=== PATIENT | male | born 1995 | race Caucasian/White ===

== ENCOUNTER 2024-10-10 23:23 | Emergency (ER) | payer OTHER, SELFPAY ==
[2024-10-10 23:25] VITALS: BP 123/78; PULSE 115; O2SAT 96
[2024-10-10 23:38] VITALS: BP 119/66; PULSE 113; RESP 18; TEMP 36.7; O2SAT 96; BMI 24.4
--- NOTE | 2024-10-10 23:41 | ECG_ITS ---
Test Reason : cocaine use Blood Pressure : */* mmHG Vent. Rate : 86 BPM Atrial Rate : 86 BPM P-R Int : 140 ms QRS Dur : 94 ms QT Int : 374 ms P-R-T Axes : 67 48 41 degrees QTcB Int : 447 ms Normal sinus rhythm Normal ECG No previous ECGs available Referred By: Generic ED Physician Electronically Signed By: NINA CROWLEY MD
[2024-10-11 00:38] LABS: MANUAL DIFF FLAG NO
[2024-10-11 00:44] LABS: Hematocrit 40.2 % (42.0-52.0); Hemoglobin 14.0 g/dl (14.0-18.0); Imm Gran Abs Auto 0.03 X10*3/uL (0.00-0.03); Imm Gran Pct Auto 0.4 % (0.0-0.4); Lymphocytes Absolute Auto 1.9 X10*3/uL (1.2-4.9); Mean Corpuscular HGB Conc 34.8 g/dl (31.0-36.0); Mean Corpuscular Hemoglobin 29.2 pg (27.0-33.0); Mean Corpuscular Volume 83.9 fL (80.0-98.0); NRBC Abs Auto 0.000 X10*3/uL (0.0-0.012); NRBC Pct Auto 0.0 /100WBC (0.0-0.2); Platelet Count 208 X10*3/uL (160-400); Red Blood Count 4.79 X10*6/uL (4.60-5.80); White Blood Count 6.8 X10*3/uL (4.8-10.8)
[2024-10-11 00:53] LABS: Alanine Aminotransferase 31 U/L (0-40); Albumin Level 4.7 g/dL (3.5-5.0); Alkaline Phosphatase 68 U/L (39-117); Anion Gap 15 (12-20); Aspartate Amino Transferase 22 U/L (5-37); Blood Urea Nitrogen 13 mg/dL (9-16); Calcium 9.2 mg/dL (8.4-10.2); Carbon Dioxide 25 mmol/L (22-29); Chloride 104 mmol/L (96-108); Creatinine Clr Calc Pharmacy 127.8; Estimated Glomerular Filt Rate > 60; Potassium 3.4 mmol/L (3.3-5.1); Sodium 141 mmol/L (135-145); Total Protein 7.4 g/dL (6.5-8.0)
--- NOTE | 2024-10-11 01:42 | ED_ITS ---
HPI - Medical Clearance General Chief complaint: Medical Clearance Stated complaint: Medical Clearance Time Seen by Provider: 10/11/24 01:42 Source: patient and EMS Mode of arrival: EMS Limitations: no limitations History of Present Illness ED Provider: Dr. Kenya De La Cruz HPI Narrative: Patient presents for medical clearance from the rehab facility where he is currently living. He is in a sober program there. Got depressed on his birthday that he couldn't see his son and decided to go out and used cocaine. Had been sober prior to this for months. Also drank some alcohol. Denies any symptoms. Had been feeling physically well prior to this. Denies SI/I. No reported history of alcohol withdrawal seizure. Related Information Allergies Allergy/AdvReac Type Severity Reaction Status Date / Time No Known Allergies Allergy Verified 10/11/24 13:58 Review of Systems 2 Review of Systems: as per HPI, full review of systems performed and negative but for the above mentioned pertinent positives and negatives. [facility] Social History Social History Alcohol intake: former Smoked in Last 30 Days: Yes Use of substances other than those prescribed or required for medical reasons: Yes Substance Use Type: Crack/Cocaine Substance Use Frequency: Occasionally Substance Use Frequency Other:: 3 Last Used Substance: Weeks (ago) Advance Directives: No Advance Directives Information Provided: No Physical Exam 2 Exam: Exam: GENERAL: Unkempt, no acute distress. SKIN: Normal skin color for ethnicity, warm, dry, no rashes noted. HEENT:? Normocephalic, atraumatic, no stridor, posterior oropharynx nonerythematous, dentition intact, EOMI. NECK: Soft, supple, full ROM, midline structures nontender, no step-offs, no deformities, no lymphadenopathy. CHEST: Heart regular rate and rhythm, no murmurs, symmetric chest rise and fall. PULMONARY: Clear to auscultation bilaterally, no labored breathing, no wheezes/rhales/rhonchi. ABDOMINAL: Soft, nondistended, nontender, positive bowel sounds in all quadrants. : Deferred. MUSCULOSKELETAL: Normal tone, full range of motion, no deformities, no peripheral edema. NEURO: Alert and oriented x3, CN II through XII intact, equal strength and sensation bilateral upper and lower extremities, no focal neurologic deficits.? PSYCHIATRIC: Flat affect, poor eye contact, withdrawn Vital Signs: Vital Signs: Last Vital Signs Temp 98.1 F 10/11/24 04:40 Pulse 88 10/11/24 04:40 Resp 16 10/11/24 04:40 BP 125/57 L 10/11/24 04:40 Pulse Ox 98 10/11/24 04:40 O2 Del Method Room Air 10/11/24 04:40 BMI result Body Mass Index 24.4 Medical Decision Making Medical Decision Making MDM Narrative: Patient presents with request for medical clearance to return to the rehab where he is enrolled in a program after using cocaine and alcohol today. Differential diagnosis includes suicidal ideations, depression, anxiety, mood disorder, decompensated mental illnesses such as schizophrenia or bipolar disorder, medication noncompliance, among many others. Medical clearance protocol was initiated. Differential Diagnosis Differential Diagnoses: The differential diagnosis associated with the presentation includes (as above) Admission/Observation Consideration of admission/observation: Escalation of care including admission/observation considered Lab Data 10/11/24 00:33 10/11/24 00:33 Labs: Lab Results 10/11/24 10/11/24 Range/Units 00:33 02:55 WBC 6.8 (4.8-10.8) X10*3/uL RBC 4.79 (4.60-5.80) X10*6/uL Hgb 14.0 (14.0-18.0) g/dl Hct 40.2 L (42.0-52.0) % MCV 83.9 (80.0-98.0) fL MCH 29.2 (27.0-33.0) pg MCHC 34.8 (31.0-36.0) g/dl RDW 13.6 (11.0-16.0) % Plt Count 208 (160-400) X10*3/uL MPV 10.9 (9.4-12.4) fL Immature Gran % (Auto) 0.4 (0.0-0.4) % Neut % (Auto) 58.9 (45-73) % Lymph % (Auto) 28.2 (20-40) % [place] % (Auto) 10.4 (2-11) % Eos % (Auto) 1.2 (0-4) % Baso % (Auto) 0.9 (0-2) % Lymph # (Auto) 1.9 (1.2-4.9) X10*3/uL [place] # (Auto) 0.7 (0.1-1.2) X10*3/uL Eos # (Auto) 0.1 (0.0-0.4) X10*3/uL Baso # (Auto) 0.1 (0.0-0.2) X10*3/uL Abs Immat Gran (auto) 0.03 (0.00-0.03) X10*3/uL Absolute Neuts (auto) 4.0 (2.0-8.3) x10*3/uL Absolute Nucleated RBC 0.000 (0.0-0.012) X10*3/uL Nucleated RBC % (auto) 0.0 (0.0-0.2) /100WBC Sodium 141 (135-145) mmol/L Potassium 3.4 (3.3-5.1) mmol/L Chloride 104 (96-108) mmol/L Carbon Dioxide 25 (22-29) mmol/L Anion Gap 15 (12-20) BUN 13 (9-16) mg/dL Creatinine 0.88 (0.5-1.4) mg/dL Estim Creat Clear Calc 127.8 Estimated GFR > 60 Random Glucose 96 (60-115) mg/dL Calcium 9.2 (8.4-10.2) mg/dL Total Bilirubin 0.5 (0.0-1.0) mg/dL AST 22 (5-37) U/L ALT 31 (0-40) U/L Alkaline Phosphatase 68 (39-117) U/L Total Protein 7.4 (6.5-8.0) g/dL Albumin 4.7 (3.5-5.0) g/dL Urine Opiates Screen Not Detected (Not Detect) Ur Buprenorphine Scrn Not Detected (Not Detect) ng/mL Ur Oxycodone Screen Not Detected (Not Detect) ng/mL Urine Methadone Screen Not Detected (Not Detect) ng/mL Urine Fentanyl Screen Not Detected (Not Detect) Ur Barbiturates Screen Not Detected (Not Detect) Ur Phencyclidine Scrn Not Detected (Not Detect) Ur Amphetamines Screen POSITIVE H (Not Detect) U Benzodiazepines Scrn Not Detected (Not Detect) Urine Cocaine Screen POSITIVE H (Not Detect) U Marijuana (THC) Screen Not Detected (Not Detect) Ethyl Alcohol < 10 mg/dL Independent Historian Clinical information obtained from an independent historian. History obtained from or confirmed by: EMS Chronic Conditions Patient?s care impacted by: Other (substance use disorder, ADHD) Social Determinants Patient?s care significantly limited by Social Determinants of Health including: Alcoholism and drug addiction in family, Problems related to primary support group and Other Social Determinant of Health Discharge Plan Discharge Clinical Impression: Encounter for medical screening examination, Cocaine use, Alcohol use Patient Disposition: Home, Self-Care Instructions: Cocaine Use Disorder (ED) Additional Instructions: Concomitant use of cocaine and other stimulants such as Adderall can be dangerous. Use extreme caution when mixing stimulants. Return to the emergency room with any new or worsening symptoms including: Chest pain, difficulty breathing, abdominal pain, inability to tolerate food or drink, fevers greater than 100?, any new symptom that concerns you. Call 911 with any medical emergency. Interventions: ED Discharge Assessment Last Done: 10/11/24 04:40 Discharge Date/Time: 10/11/24 04:46 Print Language: Romanian
[2024-10-11 03:10] LABS: Cannabinoid Screen Urine Not Detected (Not Detect)
[2024-10-11 04:40] VITALS: BP 125/57; PULSE 88; RESP 16; TEMP 36.7; O2SAT 98
== END 2024-10-11 04:46 | disposition home or self-care (01) ==
PROVIDERS: Emergency Provider Emergency Medicine; PCP Internal Medicine
DX: F14.10 Cocaine abuse, uncomplicated (principal); F10.10 Alcohol abuse, uncomplicated; Z02.0 Encounter for examination for admission to educational institution; Z51.81 Encounter for therapeutic drug level monitoring; Z79.899 Other long term (current) drug therapy; Y90.0 Blood alcohol level of less than 20 mg/100 ml
CPT/HCPCS: 36415; 80053; 80307; 85025; 93005; 99284

== ENCOUNTER → 2024-10-10 23:41 | Outpatient (BNV) | payer OTHER, SELFPAY | PROVIDERS: Emergency Provider Emergency Medicine; PCP Internal Medicine; Visit Provider Internal Medicine Cardiovascular Disease | DX: F14.90 Cocaine use, unspecified, uncomplicated (principal) | CPT/HCPCS: 93010 ==

== ENCOUNTER 2024-10-11 13:44 | Emergency (ER) | payer OTHER, SELFPAY ==
--- NOTE | ~2024-10-11 | XR_ITS ---
EXAMINATION: XR CHEST CLINICAL INFORMATION: left sided chest pain COMPARISON: None available. TECHNIQUE: 2 views of the chest were obtained. FINDINGS: No consolidation, pleural effusion or pneumothorax. No gross hyperinflation. Cardiomediastinal silhouette size is normal. Old traumatic deformity mid diaphysis of the right clavicle. Metallic hardware throughout the diaphysis of the right clavicle. XR/XR chest 2V IMPRESSION: No acute airspace disease. Status post open reduction internal fixation, right clavicle fracture. Electronically signed by: Kwaku Raya MD 10/11/2024 02:09 PM EDT
--- NOTE | 2024-10-11 13:45 | ECG_ITS ---
Test Reason : CHESST PAIN Blood Pressure : */* mmHG Vent. Rate : 89 BPM Atrial Rate : 89 BPM P-R Int : 134 ms QRS Dur : 92 ms QT Int : 350 ms P-R-T Axes : 66 58 44 degrees QTcB Int : 425 ms Normal sinus rhythm Normal ECG When compared with ECG of 11-Oct-2024 00:27, No significant change was found Referred By: Generic ED Physician Electronically Signed By: NINA CROWLEY MD
[2024-10-11 13:54] VITALS: BP 113/54; PULSE 94; RESP 18; TEMP 36.3; O2SAT 98; BMI 24.6
--- NOTE | 2024-10-11 13:56 | ED.CHESTPAIN ---
HPI - Chest Pain General Chief Complaint: Chest Pain Stated Complaint: CP Time Seen by Provider: 10/11/24 15:48 History of Present Illness ED Provider: Carmencita MAGAÑA narrative: The patient is a 29-year-old male who reports a history of alcohol and cocaine use problems. He apparently has been in a drug treatment center for the last several weeks. The patient was sent from the drug treatment Center today for medical evaluation because of a complaint of left-sided chest pain and left arm pain. He says this pain started last night at around 23:30. He says that he was feeling bad yesterday because it was his birthday and he was not able to see his son. He is from his son's mother. He also reports that another son of his recently. The patient says that he feels sad about his situation but is not suicidal and he has not done anything to harm himself although he was sent to the emergency room late yesterday evening and was evaluated here late yesterday evening and early this morning. He had presented here at 23:30 last night for medical clearance. Apparently he had told staff at his drug treatment facility that he had admitted to doing a shot of alcohol and a line of cocaine 3 hours prior to arrival. Because he had used these medications Related Data Allergies Allergy/AdvReac Type Severity Reaction Status Date / Time No Known Allergies Allergy Verified 10/11/24 13:58 [facility] Social History Social History Alcohol intake: former Smoked in Last 30 Days: Yes Use of substances other than those prescribed or required for medical reasons: Yes Substance Use Type: Crack/Cocaine Substance Use Frequency: Occasionally Substance Use Frequency Other:: 3 Last Used Substance: Weeks (ago) Advance Directives: No Advance Directives Information Provided: No Physical Exam Vital Signs: Vital Signs: Last Vital Signs Temp 98.2 F 10/11/24 17:46 Pulse 91 10/11/24 17:46 Resp 13 10/11/24 17:46 BP 123/72 10/11/24 17:46 Pulse Ox 98 10/11/24 17:46 O2 Del Method Room Air 10/11/24 17:46 BMI result Body Mass Index 24.6 Const: Other: the patient is a 29-year-old male who was awake and alert. He has a somewhat anxious affect but does not seem in acute distress. Orientation/consciousness: patient oriented x3 HEENT: Other: The face is symmetrical. Mucous membranes moist. Eyes: Other: Pupils are round equal, conjunctivae are clear, extraocular movements intact Neck: Neck: Yes normal visual inspection and Yes full ROM Chest: Other: There is left-sided chest wall tenderness that seems to reproduce the patient's pain. Resp: Effort & Inspection: normal respiratory effort Auscultation: clear to auscultation bilaterally Cardio: Rate: regular rate Rhythm: regular rhythm Heart sounds: S1 normal heart sound present and S2 normal heart sound present GI: Other: Abdomen is soft and nontender Skin: Other: The skin is dry and unremarkable General skin exam: no rashes or lesions noted Neuro: General: patient oriented x3, gait normal, tone normal, moves all extremities, no focal motor deficits and CN's II-XI intact bilaterally Extrem: Other: There is no calf swelling or tenderness. No asymmetry. No peripheral edema. Course Course Course Narrative: This is a Rapid Medical Examination (RME) performed by Parveen Hinds PA-C in triage. Full HPI, ROS, assessment and treatment plan per primary provider in the Main ED. Hx: 29 yo M hx of cocaine use disorder and etoh use disorder, currently in treatment, here for eval of severe 9/10 left sided chest pain since yesterday. pain worse with breathing. reports father and grand father hx of MIs. has not used drugs in 2-3 months. denies IVDU. PE/vitals: uncomfortable appearing, holding chest Plan: labs, ekg, cxr Medications Administered Discontinued Medications Generic Name Dose Route Start Last Admin Trade Name Freq PRN Reason Stop Dose Admin Ketorolac Tromethamine 30 mg 10/11/24 17:00 10/11/24 17:10 Ketorolac Tromethamine 30 Mg/Ml Vial IM 10/11/24 17:01 30 mg ONCE ONE Administration Medical Decision Making Medical Decision Making MDM Narrative: The patient is a 29-year-old male who was currently in a drug rehab facility. Apparently last night he used cocaine and had a shot of alcohol. He was sent to the ER last night because of this. He was evaluated and discharged from the emergency room. He returns saying that he has had left-sided chest pain since last night after using the cocaine and alcohol. He described left-sided pleuritic chest pain. He has a nonischemic EKG. His EKG is similar to his EKG from yesterday evening. He had an initial troponin of 44.5. He had a 2nd troponin of 46.4. I do not consider this is significant change. Given that his pain seems primarily pleuritic and given that his EKGs unremarkable and given that he used cocaine last night I think it is unlikely that this elevated but non rising troponin represents an acute coronary syndrome. Since his pain was pleuritic we also ran a D-dimer that was undetectable. Given this combination of normal EKG, flat troponins, and a normal D-dimer and a normal chest x-ray my suspicion for a dangerous process is low. His chest pain seems reproducible with the palpation of his chest wall. I suspect this is more likely chest wall pain, possibly in the setting of some emotional distress related to his separation from his child and also the recent of another child. However the patient maintains he is absolutely not suicidal. He was asked this several times and in different ways and denied any suicidality on each occasion. Ultimately I felt that this was chest wall pain in the he was medically clear and could returned to his drug rehab program. He should return to the emergency room for another evaluation if significantly worse at any time. Lab Data 10/11/24 14:03 10/11/24 14:03 Labs: Lab Results 10/11/24 10/11/24 Range/Units 14:03 16:07 WBC 6.6 (4.8-10.8) X10*3/uL RBC 5.01 (4.60-5.80) X10*6/uL Hgb 14.6 (14.0-18.0) g/dl Hct 42.5 (42.0-52.0) % MCV 84.8 (80.0-98.0) fL MCH 29.1 (27.0-33.0) pg MCHC 34.4 (31.0-36.0) g/dl RDW 13.9 (11.0-16.0) % Plt Count 205 (160-400) X10*3/uL MPV 10.8 (9.4-12.4) fL Immature Gran % (Auto) 0.2 (0.0-0.4) % Neut % (Auto) 59.6 (45-73) % Lymph % (Auto) 22.6 (20-40) % [place] % (Auto) 14.0 H (2-11) % Eos % (Auto) 2.7 (0-4) % Baso % (Auto) 0.9 (0-2) % Lymph # (Auto) 1.5 (1.2-4.9) X10*3/uL [place] # (Auto) 0.9 (0.1-1.2) X10*3/uL Eos # (Auto) 0.2 (0.0-0.4) X10*3/uL Baso # (Auto) 0.1 (0.0-0.2) X10*3/uL Abs Immat Gran (auto) 0.01 (0.00-0.03) X10*3/uL Absolute Neuts (auto) 3.9 (2.0-8.3) x10*3/uL Absolute Nucleated RBC 0.000 (0.0-0.012) X10*3/uL Nucleated RBC % (auto) 0.0 (0.0-0.2) /100WBC ESR 2 (0-15) MM/HR D-Dimer High Sensitivty < 150 NG/ML Sodium 139 (135-145) mmol/L Potassium 4.1 D (3.3-5.1) mmol/L Chloride 107 (96-108) mmol/L Carbon Dioxide 25 (22-29) mmol/L Anion Gap 11 L (12-20) BUN 15 (9-16) mg/dL Creatinine 1.09 (0.5-1.4) mg/dL Estim Creat Clear Calc 103.2 Estimated GFR > 60 Random Glucose 85 (60-115) mg/dL Calcium 9.7 (8.4-10.2) mg/dL Magnesium 2.3 (1.6-2.6) mg/dL Total Bilirubin 0.7 (0.0-1.0) mg/dL AST 22 (5-37) U/L ALT 30 (0-40) U/L Alkaline Phosphatase 71 (39-117) U/L Troponin I High Sens 44.5 H 46.4 H (<3.5-35.0) ng/L C-Reactive Protein < 0.10 (< or = 0.50) mg/dL Total Protein 7.5 (6.5-8.0) g/dL Albumin 4.6 (3.5-5.0) g/dL Lipase 10 (8-78) U/L Independent Interpretation I performed an independent interpretation of an: EKG Interpretation: EKG at 13:52 shows normal sinus rhythm at 89 beats per minute. No acute ischemic changes. Discharge Plan Discharge Clinical Impression: Left-sided chest wall pain Patient Disposition: Home, Self-Care Additional Instructions: Your testing in the emergency room today is reassuring. Your chest pain does not seem to be the sign of a heart attack. Additionally your chest pain does not seem to be the sign of a blood clot in your lungs. Your chest x-ray does not show any concerning findings. I suspect that the pain is coming more from the muscles and cartilage in your chest wall. We call this kind of pain chest wall pain. This may be addressed using ibuprofen and acetaminophen as needed. Please plan on following up with the regular doctor when you are out of your treatment episode. Return to the emergency room if significantly worse. Interventions: ED Discharge Assessment Last Done: 10/11/24 17:46 Discharge Date/Time: 10/11/24 17:46 Print Language: Qatari
[2024-10-11 14:05] LABS: MANUAL DIFF FLAG NO
[2024-10-11 14:06] LABS: Hematocrit 42.5 % (42.0-52.0); Hemoglobin 14.6 g/dl (14.0-18.0); Imm Gran Abs Auto 0.01 X10*3/uL (0.00-0.03); Imm Gran Pct Auto 0.2 % (0.0-0.4); Lymphocytes Absolute Auto 1.5 X10*3/uL (1.2-4.9); Mean Corpuscular HGB Conc 34.4 g/dl (31.0-36.0); Mean Corpuscular Hemoglobin 29.1 pg (27.0-33.0); Mean Corpuscular Volume 84.8 fL (80.0-98.0); NRBC Abs Auto 0.000 X10*3/uL (0.0-0.012); NRBC Pct Auto 0.0 /100WBC (0.0-0.2); Platelet Count 205 X10*3/uL (160-400); Red Blood Count 5.01 X10*6/uL (4.60-5.80); White Blood Count 6.6 X10*3/uL (4.8-10.8)
[2024-10-11 14:26] LABS: Troponin-I High Sensitivity 44.5 ng/L (<3.5-35.0)
[2024-10-11 14:32] LABS: Alanine Aminotransferase 30 U/L (0-40); Albumin Level 4.6 g/dL (3.5-5.0); Alkaline Phosphatase 71 U/L (39-117); Anion Gap 11 (12-20); Aspartate Amino Transferase 22 U/L (5-37); Blood Urea Nitrogen 15 mg/dL (9-16); Calcium 9.7 mg/dL (8.4-10.2); Carbon Dioxide 25 mmol/L (22-29); Chloride 107 mmol/L (96-108); Creatinine Clr Calc Pharmacy 103.2; Estimated Glomerular Filt Rate > 60; Magnesium 2.3 mg/dL (1.6-2.6); Potassium 4.1 mmol/L (3.3-5.1); Sodium 139 mmol/L (135-145); Total Protein 7.5 g/dL (6.5-8.0)
[2024-10-11 14:42] LABS: Lipase 10 U/L (8-78)
[2024-10-11 15:40] VITALS: BP 123/72; PULSE 91; RESP 13; TEMP 36.8; O2SAT 98
[2024-10-11 16:28] LABS: D Dimer High Sensitivity < 150 NG/ML
[2024-10-11 16:33] LABS: Troponin-I High Sensitivity 46.4 ng/L (<3.5-35.0)
[2024-10-11 17:46] VITALS: BP 123/72; PULSE 91; RESP 13; TEMP 36.8; O2SAT 98
== END 2024-10-11 17:46 | disposition home or self-care (01) ==
PROVIDERS: Physician Assistant Medical; Emergency Provider Emergency Medicine
DX: R07.89 Other chest pain (principal); F14.10 Cocaine abuse, uncomplicated; F10.10 Alcohol abuse, uncomplicated
CPT/HCPCS: 36415; 71046; 80053; 83690; 83735; 84484; 85025; 85379; 85652; 86140; 93005; 96372; 99284; 99285; J1885

== ENCOUNTER → 2024-10-11 13:45 | Outpatient (BNV) | payer OTHER, SELFPAY | PROVIDERS: Emergency Provider Emergency Medicine; Visit Provider Internal Medicine Cardiovascular Disease | DX: R07.9 Chest pain, unspecified (principal) | CPT/HCPCS: 93010 ==

== ENCOUNTER → 2024-10-11 13:55 | Outpatient (BNV) | payer OTHER, SELFPAY | PROVIDERS: Visit Provider Radiology Diagnostic Radiology | DX: R07.89 Other chest pain (principal) | CPT/HCPCS: 71046 ==

== ENCOUNTER 2024-11-16 00:41 | Emergency (ER) | payer OTHER, SELFPAY ==
--- NOTE | 2024-11-16 00:48 | PC.NURSE ---
pt coming from [facility], unable to have pt there while under the influence. Pt states he feels okay, drank about 12 drinks since 3 pm.
[2024-11-16 00:49] VITALS: BP 135/72; BP 150/83; PULSE 124; PULSE 129; RESP 18; TEMP 36.8; O2SAT 96; O2SAT 98; BMI 26.2
--- NOTE | 2024-11-16 00:52 | ED_ITS ---
HPI - Alcohol General Chief Complaint: ETOH/Substance Use Stated Complaint: ETOH Time Seen by Provider: 11/16/24 00:46 Source: patient Mode of arrival: EMS Limitations: no limitations History of Present Illness ED Provider: Dr. Dafne Brito HPI narrative: Patient comes to the emergency room via ambulance. According to the patient and EMS, the patient is in a correction/facility where he can not spend the night if he is intoxicated. Patient showed up to his residence after drinking alcohol and he was denied the entrance. EMS was called and they asked him to bring to emergency room for medical clearance. Patient states that he used cocaine and drank alcohol. Patient denies SI or HI Related Data Allergies Allergy/AdvReac Type Severity Reaction Status Date / Time No Known Allergies Allergy Verified 11/16/24 00:51 Review of Systems 2 Review of Systems: Constitutional : No Weight loss, No Fever, No Chills, No Night Sweats, No Fatigue, No Malaise ENT/Mouth : No Hearing loss, No Ear Pain, No Nasal Congestion, No Sinus Pain, No Hoarseness, No sore throat, No Rhinorrhea, No Swallowing Difficulty Eyes: No Eye Pain, No Swelling, No Redness, No Foreign Body, No Discharge, No Vision Changes Cardiovascular : No Chest Pain, No SOB, No Dyspnea on Exertion, No Orthopnea, No Edema, No Palpitations Respiratory : No Cough, No Sputum, No Wheezing, No Smoke Exposure, No Dyspnea Gastrointestinal : No Nausea, No Vomiting, No Diarrhea, No Constipation, No abdominal Pain, No Hematochezia, No Melena Genitourinary : no irregular bleeding, No Dysuria, No Urinary Frequency, No Hematuria, No Urinary Incontinence, No Urgency, No Flank Pain, No Urinary Flow Changes, No Hesitancy Musculoskeletal : No joint pain, No Myalgias, No Joint Swelling Skin : No Skin Lesions, No rash Neuro : No Weakness, No Numbness, No Paresthesias, No Loss of Consciousness, No Dizziness, No Headache Psych : No Anxiety/Panic, No Depression, No SI/HI/AH/VH, admits to drinking alcohol and using cocaine, Heme/Lymph: No Bruising, No Bleeding,No Lymphadenopathy Endocrine : No Polyuria, No Polydipsia, No Temperature Intolerance PMFSH Social History Social History Alcohol intake: former Use of substances other than those prescribed or required for medical reasons: Yes Substance Use Type: Crack/Cocaine Advance Directives: No Advance Directives Information Provided: Yes Physical Exam ED Exam Exam: Appearance: Alert. Oriented X3. No acute distress. Eyes: Pupils equal, round and reactive to light. ENT: Pharynx normal. Neck: Normal inspection. Neck supple. No lymph nodes noted. No crepitus CVS: Normal heart rate and rhythm. Pulses normal. Normal S1 and S2 Respiratory: No respiratory distress. Breath sounds normal. No Wheezing. No rales Abdomen: Soft and nontender. No rigidity. No distention. Skin: Skin warm and dry. Normal skin color. Normal skin turgor. Extremities: No lower extremity edema. No Lacerations. No Rash Neuro: Oriented X 3. No motor deficit. No sensory deficit. Moving all extremities. No slurred speech. CN 2 through 12 grossly intact Psych: calm, cooperative, normal affect Vital Signs: Vital Signs - 24 hr 11/16/24 00:49 Temperature 98.2 F Pulse Rate 129 H Respiratory Rate 18 Blood Pressure 135/72 Pulse Oximetry 96 Oxygen Delivery Method Room Air BMI result Body Mass Index 26.2 Course Course Course Narrative: Overall, patient does not seem to be intoxicated. Patient is calm, cooperative, coherent. Patient agreeable to have blood work done an urine test. Patient denies any falls or any injuries. Denies SI or HI. Medical Decision Making Medical Decision Making [facility] Narrative: It was noted that patient's has a white blood cell count was 17.1. Patient denies any URI or UTI symptoms. However, patient states that about 2 weeks ago he had COVID. Patient denies any chest pain or shortness of breath. Patient's potassium was slightly decreased at 3.2, repleted p.o., normal LFTs Toxicology positive for amphetamines, cocaine, and ethyl alcohol level of 108. However, patient is completely awake, alert and oriented x3, coherent,, cooperative, clinically sober Differential Diagnosis Differential Diagnoses: The differential diagnosis associated with the presentation includes (Alcohol intoxication, polysubstance abuse) Lab Data [facility] Lab Attestation statement: I reviewed the patient's lab results. 11/16/24 01:05 11/16/24 01:05 Labs: Lab Results 11/16/24 Range/Units 01:05 WBC 17.1 H (4.8-10.8) X10*3/uL RBC 4.83 (4.60-5.80) X10*6/uL Hgb 14.2 (14.0-18.0) g/dl Hct 40.7 L (42.0-52.0) % MCV 84.3 (80.0-98.0) fL MCH 29.4 (27.0-33.0) pg MCHC 34.9 (31.0-36.0) g/dl RDW 13.1 (11.0-16.0) % Plt Count 220 (160-400) X10*3/uL MPV 11.0 (9.4-12.4) fL Immature Gran % (Auto) 0.4 (0.0-0.4) % Neut % (Auto) 78.6 H (45-73) % Lymph % (Auto) 11.4 L (20-40) % [place] % (Auto) 8.7 (2-11) % Eos % (Auto) 0.5 (0-4) % Baso % (Auto) 0.4 (0-2) % Lymph # (Auto) 1.9 (1.2-4.9) X10*3/uL [place] # (Auto) 1.5 H (0.1-1.2) X10*3/uL Eos # (Auto) 0.1 (0.0-0.4) X10*3/uL Baso # (Auto) 0.1 (0.0-0.2) X10*3/uL Abs Immat Gran (auto) 0.06 H (0.00-0.03) X10*3/uL Absolute Neuts (auto) 13.5 H (2.0-8.3) x10*3/uL Absolute Nucleated RBC 0.000 (0.0-0.012) X10*3/uL Nucleated RBC % (auto) 0.0 (0.0-0.2) /100WBC Sodium 141 (135-145) mmol/L Potassium 3.2 L D (3.3-5.1) mmol/L Chloride 107 (96-108) mmol/L Carbon Dioxide 23 (22-29) mmol/L Anion Gap 14 (12-20) BUN 13 (9-16) mg/dL Creatinine 0.98 (0.5-1.4) mg/dL Estim Creat Clear Calc 114.8 Estimated GFR > 60 Random Glucose 111 (60-115) mg/dL Calcium 9.0 D (8.4-10.2) mg/dL Total Bilirubin 0.2 (0.0-1.0) mg/dL Direct Bilirubin < 0.2 (0.0-0.5) mg/dL AST 24 (5-37) U/L ALT 34 (0-40) U/L Alkaline Phosphatase 81 (39-117) U/L Total Protein 7.6 (6.5-8.0) g/dL Albumin 4.8 (3.5-5.0) g/dL Ethyl Alcohol 108 mg/dL Discharge Plan Discharge Clinical Impression: Alcoholic intoxication Patient Disposition: Home, Self-Care Instructions: Abuse of Alcohol (ED), Polysubstance Use Disorder (ED) Additional Instructions: You are toxicology was positive for alcohol, amphetamines and cocaine. Please follow-up with your primary care physician tomorrow. If you have any worsening or new symptoms, please return to the emergency room or call 911 Print Language: Kyrgyz
[2024-11-16 00:57] VITALS: PULSE 124
--- NOTE | 2024-11-16 02:19 | PC.NURSE ---
pt provided a phone number for Charlotte yeh [phone], no answer, Left VM. another number provided for staff member Nam [phone], Nam states a staff member is on hi way to pick pt up.
[2024-11-16 02:31] VITALS: BP 130/68; PULSE 98; RESP 18; TEMP 36.9; O2SAT 98
== END 2024-11-16 02:33 | disposition home or self-care (01) ==
PROVIDERS: Emergency Provider Emergency Medicine
DX: F10.129 Alcohol abuse with intoxication, unspecified (principal); F14.90 Cocaine use, unspecified, uncomplicated
CPT/HCPCS: 36415; 80048; 80076; 80307; 85025; 99284